=== PATIENT | male | born 2000 | race African-American/Black ===

== ENCOUNTER 2021-04-27 12:43 | Emergency (ER) | payer OTHER, SELFPAY ==
[2021-04-27 13:37] VITALS: BP 107/70; PULSE 101; RESP 16; TEMP 36.8; O2SAT 100
[2021-04-27 16:20] VITALS: BP 133/87; PULSE 81; O2SAT 98
[2021-04-27 18:49] VITALS: BP 125/82; PULSE 87; RESP 18; O2SAT 98
[2021-04-27 19:00] LABS: Hematocrit 40.8 % (42.0-52.0); Hemoglobin 14.4 g/dL (14.0-18.0); Mean Corpuscular HGB Conc 35.3 g/dl (32-36); Mean Corpuscular Hemoglobin 29.6 pg (26-34); Mean Corpuscular Volume 83.8 fl (80-100); Mean Platelet Volume 9.2 fl (7.4-10.4); Platelet Count Result 270 k/mm3 (150-375); Red Blood Count 4.87 M/mm3 (4.6-6.20); Red Cell Distribution Width 12.5 % (11.5-14.5); White Blood Count 5.7 K/mm3 (4.5-10.0)
--- NOTE | 2021-04-27 19:02 | ED.NAVMDI ---
HPI - Nausea/Vomiting/Diarrhea General Chief complaint: Nausea/Vomiting/Diarrhea Stated complaint: N/V/D X3D Time Seen by Provider: 04/27/21 18:58 Source: patient Mode of arrival: ambulatory Limitations: no limitations History of Present Illness HPI Narrative: Patient is a 20-year-old male complaining of nausea, vomiting, diarrhea that started 3 days ago. Patient describes his vomitus is nonbilious nonbloody. Patient describes his diarrhea as loose watery nonbloody. Patient states that today he is actually feeling better, did not have any loose watery stools had some nausea but no vomiting, but was told by his assistant golf coach to possibly get IV fluids since he is running a marathon this weekend. Patient denies any chest pain, shortness of breath, abdominal pain, fever or chills. Related Data Allergies Allergy/AdvReac Type Severity Reaction Status Date / Time No Known Allergies Allergy Unverified 06/06/18 07:47 Review of Systems Review of Systems: All systems reviewed & are unremarkable except as noted in HPI and below Constitutional: Constitutional: Denies body ache(s), Denies chills, Denies excessive sweating, Denies fatigue, Denies fever(s), Denies headache(s), Denies lethargy, Denies malaise, Denies weakness and Denies weight loss Eyes: Eyes: Denies blurry vision, Denies change in vision and Denies loss of vision ENT: Denies dizziness, Denies ear discharge, Denies headache(s), Denies lip swelling, Denies epistaxis, Denies nasal congestion, Denies neck pain, Denies throat swelling and Denies tongue swelling Cardiovascular: Cardiovascular: Denies chest pain, Denies chest pain at rest, Denies chest pain with activity, Denies diaphoresis, Denies rapid heart rate, Denies edema, Denies irregular heart rhythm, Denies lightheadedness, Denies palpitations, Denies dyspnea and Denies dyspnea on exertion Respiratory: Respiratory: Denies chest congestion, Denies cough, Denies hemoptysis, Denies dyspnea and Denies dyspnea on exertion Gastrointestinal: Gastrointestinal: Denies abdominal pain, Denies melena, Denies hematochezia and Denies hematemesis Musculoskeletal: Musculoskeletal: Denies abnormal gait, Denies deformity, Denies joint swelling, Denies limited range of motion, Denies neck pain and Denies numbness Neurologic: Denies Abnormal speech present, Denies abnormal gait, Denies confusion, Denies dizziness, Denies headache(s), Denies focal weakness, Denies loss of vision, Denies numbness, Denies Other visual disturbances, Denies Sensory deficit (Neuro) and Denies weakness Psychiatric: Psychiatric: Denies confusion, Denies depression, Denies auditory hallucinations, Denies homicidal ideation and Denies suicidal ideation Endocrine: Endocrine: Denies cold intolerance, Denies excessive sweating, Denies fatigue, Denies heat intolerance and Denies palpitations Hematologic/Lymphatic: Hematologic/Lymphatic: Denies easy bleeding and Denies easy bruising Allergic/Immunologic: Allergic/Immunologic: Denies lip swelling, Denies throat swelling and Denies tongue swelling PMFSH Comments Past medical history: None Family history: None Social history: Non-smoker no EtOH or drug use Exam Const: General: cooperative, healthy appearing, comfortable, no acute distress, well developed, alert and awake; No confusion Orientation/consciousness: oriented to person, oriented to place, oriented to time, patient oriented x3 and No confusion Limitations: no limitations HENMT: Head: normal to inspection, normocephalic and atraumatic Ears: hearing grossly normal bilaterally, TM normal on the right and TM normal on the left General nose exam: Normal external nose present, Normal nares present and No nasal discharge present Face and sinus: normal facial exam Mouth: Yes Normal oral and palatal mucosa present, Yes lip normal, Yes tongue normal and Yes oropharynx normal Throat: posterior oropharynx normal, tonsils normal and uvula midline Eyes: General: appearance normal, gisele
[2021-04-27] MEDS: SODIUM CHLORIDE 0.9% IV 1,000 ML 999 ML IV CONT (19:04)
[2021-04-27 19:13] LABS: Add Urine Microscopic? YES; Appearance Urine Clear (Clear); Bacteria Urine Trace /hpf; Bilirubin Urine Negative (Negative); Blood Urine Negative (Negative); Color Urine Amber (Yellow); Glucose Urine UA Negative (Negative); Ketones Urine 1+ mg/dL (Negative); Leukocyte Esterase Ur Negative LEU/UL (Negative); Mucus Urine Heavy /lpf; Nitrate Urine Negative (Negative); Protein Urine 1+ mg/dL (Negative); RBC Urine 0-2 /hpf (0-2); Specific Grav Ur 1.025 (1.001-1.035); Squamous Epithelial Cell Urine Rare /hpf (Few); Urobilinogen Urine Negative mg/dL (<2.0); WBC Urine 0-3 /hpf
[2021-04-27 19:14] LABS: Alanine Aminotransferase 47 U/L (4-50); Alkaline Phosphatase 77 U/L (38-126); Anion Gap 13 mmol/L (8-16); Aspartate Amino Transferase 31 U/L (17-59); Bilirubin,Total 2.7 mg/dL (0.2-1.3); Blood Urea Nitrogen 22 mg/dL (9-20); Calcium 10.1 mg/dL (8.4-10.2); Carbon Dioxide 27 mmol/L (22-30); Chloride 97 mmol/L (98-107); Estimated CRCL calculation 87 ml/min; Estimated Glomerular Filt Rate > 60; Glucose 99 mg/dL (65-110); Lipase 45 U/L (23-300); Potassium 3.5 mmol/L (3.4-5.0); Sodium 137 mmol/L (137-145)
[2021-04-27 19:27] LABS: Band Neutrophils Percent 17 % (0-6); Eosinophils Absolute Manual 0.05 K/mm3 (0.02-0.5); Eosinophils Percent Manual 1 % (0-4); Lymphocytes Absolute Manual 1.08 K/mm3 (1.1-4.5); Monocytes Absolute Manual 1.53 K/mm3 (0.1-0.90); Monocytes Percent Manual 27 % (3-9); Neutrophils Absolute Manual 3.02 K/mm3 (1.3-6.7); Neutrophils Percent Manual 36 % (46-73); Total Cells Counted 100
[2021-04-27 19:28] LABS: Platelet Estimate Adequate (Adequate)
[2021-04-27 19:33] VITALS: BP 141/79; PULSE 101; RESP 18; O2SAT 100
[2021-04-27] MEDS: ONDANSETRON INJ 4 MG/2 ML VIAL IV PUSH (19:33)
[2021-04-27 21:18] VITALS: BP 123/69; PULSE 91; RESP 16; O2SAT 100
== END 2021-04-27 21:20 | disposition home or self-care (01) ==
PROVIDERS: Physician Assistant; Emergency Provider Emergency Medicine; PCP Pediatrics
DX: K52.9 Noninfective gastroenteritis and colitis, unspecified (principal); R11.2 Nausea with vomiting, unspecified
CPT/HCPCS: 36415; 80053; 81001; 83690; 85025; 96361; 96374; 99284; J2405; J7030

== ENCOUNTER 2022-01-17 11:53 | Emergency (ER) | payer OTHER, SELFPAY ==
--- NOTE | ~2022-01-17 | XR_ITS ---
EXAMINATION: XR chest 1V portable DATE: 01/17/2022 14:06 INDICATION: Cough. Chest pain. TECHNIQUE: A single frontal view of the chest was obtained. COMPARISON: None. FINDINGS: There is no pneumonia, pleural effusion, or pneumothorax. The heart size is normal. IMPRESSION: 1. No acute cardiopulmonary disease. Reviewed, dictated and finalized at location A.
[2022-01-17 12:01] VITALS: BP 115/66; PULSE 99; RESP 16; TEMP 37.1; O2SAT 99
--- NOTE | 2022-01-17 12:03 | ECG_ITS ---
Measurements Intervals [place] Rate: 87 P: 75 CT: 152 QRS: 73 QRSD: 89 T: 39 QT: 341 QTc: 412 Interpretive Statements SINUS RHYTHM NONSPECIFIC ST ELEVATION, CONSIDER NORMAL VARIANT NORMAL ECG NO PREVIOUS ECG AVAILABLE FOR COMPARISON Electronically Signed On 01-17-2022 16:36:54 CDT by Homero Sena M.D.
--- NOTE | 2022-01-17 13:46 | ED.URI ---
HPI - URI/Sore Throat General Chief Complaint: Upper Respiratory Infection Stated Complaint: covid+/ cough Time Seen by Provider: 01/17/22 13:20 Source: patient Mode of arrival: ambulatory Limitations: no limitations History of Present Illness HPI Narrative: Patient is a 21 y/o male who presents to the ED with c/o multiple symptoms. Patient reports he felt fine yesterday, but woke up this morning with headache, muscle ache, sore throat, nausea, fever, chills, dizziness, cough, right-sided chest pain with coughing, mild SOB. He took an at home COVID test which was positive. He has not tried anything for his symptoms today. Denies vomiting, abdominal pain. Patient is COVID vaccinated with booster. Related Data Allergies Allergy/AdvReac Type Severity Reaction Status Date / Time No Known Allergies Allergy Unverified 01/17/22 14:30 Review of Systems Review of Systems: CONSTITUTIONAL: Reports fevers, chills. ENT: Reports sore throat. CARDIOVASCULAR: Reports R sided CP with coughing. RESPIRATORY: Reports cough, dyspnea. GASTROINTESTINAL: Reports nausea. Denies abdominal pain, vomiting. MUSCULOSKELETAL: Reports myalgia. NEUROLOGIC: Reports EDWARDS, dizziness. All systems reviewed & are unremarkable except as noted in HPI and below PMFSH Past Medical History Medical History (Updated 01/17/22 @ 15:36 by Unique Ornelas PA-C) No pertinent past medical history Surgical History Surgical History (Updated 01/17/22 @ 13:49 by Unique Ornelas PA-C) No pertinent past surgical history Social History Social History (Updated 01/17/22 @ 13:49 by Unique Ornelas PA-C) Smoking status: Current some day smoker Exam Narrative: GENERAL: Well appearing, well-nourished, non-toxic, in no acute distress. HEAD: Normocephalic, atraumatic. EYES: PERRL/EOMI, conjunctivae clear bilaterally. NOSE: Normal, no drainage. THROAT: Pharynx clear, minimal erythema, no exudate. MMs moist. NECK: Supple. No adenopathy, no masses. RESPIRATORY: Airway patent, respirations nonlabored. Clear to auscultation bilaterally, no rales, rhonchi, wheezing. CARDIOVASCULAR: Regular rate and rhythm without murmurs, rubs, or gallops. Radial pulses 2+ and equal bilaterally. ABDOMINAL: Soft, nontender, nondistended, no hepatosplenomegaly. Normoactive BS. MUSCULOSKELETAL: Moves all extremities. Strength/ROM intact without gross deformities. No edema. Minimal TTP of R sided anterior chest wall. SKIN: Warm, dry, normal color. No rashes. NEURO: A&O X3. Speech clear. Cranial nerves II-XII grossly intact. Steady gait. No ataxic movements. PSYCHIATRIC: Appropriate mood and affect. Normal interaction. Course Vital Signs Vital signs: Vital Signs Temperature 98.8 F 01/17/22 12:01 Pulse Rate 99 01/17/22 12:01 Respiratory Rate 16 01/17/22 12:01 Blood Pressure 115/66 01/17/22 12:01 Pulse Oximetry 99 01/17/22 12:01 Oxygen Delivery Room Air 01/17/22 12:01 Temperature 98.7 F 01/17/22 14:14 Pulse Rate 87 01/17/22 14:14 Respiratory Rate 20 01/17/22 14:14 Blood Pressure 118/76 01/17/22 14:14 Pulse Oximetry 99 01/17/22 14:14 Oxygen Delivery Room Air 01/17/22 14:14 MDM - URI/Sore Throat MDM Narrative Medical decision making narrative: Patient presented to ED with 1 day history of viral type symptoms. Home COVID testing positive prior to arrival. Vital signs stable upon arrival. Afebrile. No hypoxia. EKG without acute ischemic changes. Chest x-ray unremarkable. D-dimer negative. Basic blood work obtained and showing isolated hyperbilirubinemia. Has been elevated in the past. Remainder of LFTs WNL. Patient without abdominal pain. No visible signs of jaundice. Remainder of laboratory evaluation unremarkable. Discussed this finding with patient and advised him to follow-up with primary care doctor for further evaluation. Patient feeling better with supportive therapy. He will be discharged home at this time and advise
[2022-01-17 14:00] VITALS: O2SAT 97
[2022-01-17] MEDS: SODIUM CHLORIDE 0.9% IV 1,000 ML 999 ML IV CONT (14:06)
[2022-01-17] MEDS: KETOROLAC 30 MG/ML VIAL (*BKC) IV PUSH (14:07)
[2022-01-17] MEDS: ONDANSETRON INJ 4 MG/2 ML VIAL IV PUSH (14:07)
[2022-01-17 14:14] VITALS: BP 118/76; PULSE 87; RESP 20; TEMP 37.1; O2SAT 99
[2022-01-17 14:20] LABS: Basophils Percent Auto 0.8 % (0.2-1.2); Eosinophils Percent Auto 0.4 % (0-4.4); Hematocrit 41.1 % (42.0-52.0); Hemoglobin 14.2 g/dL (14.0-18.0); Immature Granulocyte Absolute 0.03 K/mm3 (0.00-0.031); Immature Granulocyte Percent A 0.6 % (0-0.5); Immature Platelet Fraction Pct 1.5 % (0.9-11.2); Lymphocytes Absolute Auto 0.41 K/mm3 (0.9-3.2); Lymphocytes Percent Auto 7.7 % (18.3-44.2); Mean Corpuscular HGB Conc 34.5 g/dl (32-36); Mean Corpuscular Hemoglobin 28.8 pg (26-34); Mean Corpuscular Volume 83.4 fl (80-100); Mean Platelet Volume 9.1 fl (7.4-10.4); Monocytes Absolute Auto 0.9 K/mm3 (0.1-0.6); Monocytes Percent Auto 17.3 % (2.6-8.5); Neutrophils Absolute Auto 3.9 K/mm3 (1.3-6.7); Neutrophils Percent Auto 73.2 % (45.5-73.1); Platelet Count Result 294 k/mm3 (150-375); Red Blood Count 4.93 M/mm3 (4.6-6.20); Red Cell Distribution Width 12.4 % (11.5-14.5); White Blood Count 5.3 K/mm3 (4.5-10.0)
[2022-01-17 14:27] LABS: Alanine Aminotransferase 34 U/L (6-50); Albumin Level 5.1 g/dL (3.5-5.1); Alkaline Phosphatase 72 U/L (38-126); Anion Gap 11 mmol/L (8-16); Aspartate Amino Transferase 37 U/L (17-59); Bilirubin,Total 3.9 mg/dL (0.2-1.3); Blood Urea Nitrogen 10 mg/dL (9-20); Calcium 9.9 mg/dL (8.4-10.2); Carbon Dioxide 28 mmol/L (22-30); Chloride 99 mmol/L (98-107); Estimated CRCL calculation 88 ml/min; Estimated Glomerular Filt Rate > 60; Glucose 94 mg/dL (65-110); Potassium 4.2 mmol/L (3.4-5.0); Sodium 138 mmol/L (137-145)
[2022-01-17 14:54] LABS: D Dimer < 0.27 ug/mL (<0.48)
[2022-01-17 16:01] VITALS: BP 118/70; PULSE 76; RESP 18; O2SAT 99
== END 2022-01-17 16:04 | disposition home or self-care (01) ==
PROVIDERS: Physician Assistant; Emergency Provider Emergency Medicine; PCP Pediatrics
DX: U07.1 COVID-19 (principal); E80.6 Other disorders of bilirubin metabolism
CPT/HCPCS: 36415; 71045; 80053; 85025; 85055; 85380; 93005; 96361; 96365; 96375; 99284; J0131; J1885; J2405; J7030